=== PATIENT | female | born 2000 | race Caucasian/White ===

== ENCOUNTER 2023-01-30 10:56 | Outpatient (CLI) | payer SELFPAY ==
[2023-02-03 16:29] LABS: HPV Reflexed? NOT INDICATED
== END 2023-01-30 23:59 | disposition home or self-care (01) ==
LOC: LABSPEC 10:59
PROVIDERS: Visit Provider Nurse Practitioner Women's Health
DX: Z12.4 Encounter for screening for malignant neoplasm of cervix (principal)
CPT/HCPCS: 88175; G0145

== ENCOUNTER 2024-04-13 05:55 | Inpatient (IN) | payer MEDICAID, SELFPAY ==
--- NOTE | 2024-04-12 | PLAC_PTH ---
PATIENT: MARIE BENITEZ LOC: [facility] U#:[id number] AGE/SX: 24/F ROOM: WP013 RE04/13/[address]: Michaelle Jj CNM : 2000 BED: 1 DIS: 04/14/2024 SPEC #: [id number] RECD: 04/13/24 13:24 STATUS: EDITH CURT #: [id number] LAINA: 04/12/24 00:[address]: Michaelle Jj DEPT: SURGICAL PATHOLOGY RECD BY: Monika Wynne ENTERED: 04/15/24 08:23 SP TYPE: PLACENTA OTHR DR: No Primary Care Phys Tissues: Placenta, NOS Procedures: Surgery Specimen Level V HEADER OPERATION: Vaginal delivery PRE-OP DIAGNOSIS: Extra lobe on placenta TISSUE SUBMITTED: Placenta MICROSCOPIC DIAGNOSIS Shepard placenta (489 gm): Umbilical cord - Trivascular with no evidence of inflammation. Placental membranes - No pathologic change. Placental disc - John-Trung change and minimal decidual chronic inflammation. AM: 04/16/2024 MICROSCOPIC DESCRIPTION Slides are reviewed. GROSS DESCRIPTION SPECIMEN: PLACENTA / CLINICAL INFORMATION: A. Weight: 3.41 kg B. Gestational Age: 40 weeks C. Sex: Female PLACENTAL WEIGHT (POST FIXATION): 489 gm PLACENTAL DIMENSIONS: 18.0 x 17.0 x 4.0 cm PLACENTAL SHAPE: Usual ovoid with a succenturiate lobe measuring 11.0 x 9.0 x 2.0cm PLACENTAL WEIGHT FOR GESTATIONAL AGE: Within 10-99th percentile (over/under percentile) MEMBRANES - Present A. Insertion: Marginal B. Site of rupture from edge: 6.0 cm from edge of placental disc C. Color of membrane: Cadena-mucoidy D. Abnormalities: None UMBILICAL CORD - Present A. Color: Cadena-neff B. Insertion: Central C. Length: 27.0cm D. Diameter: 1.2cm E. Number of vessels: Three F. Abnormalities: None PLACENTAL DISC - Present A. Color of surface: Cadena-neff B. surface abnormalities: None C. Maternal cotyledons: Intact with minimal tears D. Attached retro placental clot: No clot E. Cut surface: Dark red and spongy F. Lesions: None G. Separate clot: Absent SECTIONS SUBMITTED: (6 cassettes) 1. Membrane roll 2. Cord, maternal end 3. Cord, end 4. Placental disc, and maternal surfaces 5. Placental disc, and maternal surfaces 6. Placental disc, and maternal surfaces, succenturiate lobe SJ.mr 04/15/2024TC:3 CPT: 36549
[2024-04-13] VITALS (65 sets, daily range): BP systolic 117–162; BP diastolic 61–89; PULSE 71–114; RESP 14–18; TEMP 36.3–37.3; O2SAT 86–100; BMI 30.6
[2024-04-13 03:41] LABS: ROM Internal Control Test YES-OK TO RESULT pt. (Internal QC); ROM Patient Test Negative (Negative)
[2024-04-13 04:20] LABS: Absolute Lymphocyte Count 1.62 X10^3/uL (0.83-4.51); Absolute Neutrophil Count 11.5 X10^3/uL (2.0-7.7); Basophil# 0.05 X10^3/uL; Basophil% 0.4 % (0-1); Eosinophil# 0.03 X10^3/uL; Eosinophils% 0.2 % (0-5); Hematocrit 33.2 % (37-47); Hemoglobin 10.9 g/dL (12.0-15.0); Lymphocyte # 1.62 X10^3/ul (0.83-4.51); Lymphocyte % 11.6 % (19-41); Mean Corp Hgb Conc 32.8 g/dL (32-36); Mean Corpuscular Hgb 28.9 pg (27.0-32.0); Mean Corpuscular Volume 88.1 fL (81-99); Mean Platelet Vol. 12.1 fl (6.2-12.0); Monocyte# 0.62 X10^3/uL; Monocyte% 4.5 % (0-10); NRBC Flagged by Analyzer 0 % (0-5); Neutrophil # 11.53 X10^3/uL (2.7-7.7); Neutrophil % 82.7 % (47-70); Platelet Count 224 K/mm3 (150-450); RBC Distribution Width SD 41.3 fl (35.1-43.9); Red Blood Count 3.77 M/mm3 (4.2-5.4); White Blood Count 13.9 K/mm3 (4.4-11.0)
[2024-04-13] MEDS: morphine 10 MG/ML Syringe IV (04:22)
[2024-04-13] MEDS: Ondansetron 4 MG/2 ML Vial IV (04:23)
[2024-04-13] MEDS: hydrOXYzine 50 MG/ML Vial 25 MG IM (04:24)
[2024-04-13 04:54] LABS: Syphilis Antibodies Non-reactive
[2024-04-13] MEDS: Lactated Ringers 1,000 ML 999 ML IV (06:10)
[2024-04-13] MEDS: fentaNYL-bupivacaine (epidural) 100 ML BAG EPIDURAL (08:00)
[2024-04-13] MEDS: Oxytocin 10 UNITS/ML Vial IM (09:53)
[2024-04-13] MEDS: Oxytocin 15 Units/NS 250ml 15 UNITS/250 ML IV.SOLN 83 UNITS IV (09:54)
--- NOTE | 2024-04-13 10:11 | EX.PCM.OBRPT ---
Assessment & Plan (1) Vaginal delivery: (2) Perineal laceration of labia: (3) Lactating mother: Maternal Data Information CINDY Calculator Estimated Delivery Date Method Current WG Current Estimate 04/10/24 Manual 40w 3d Vaginal Delivery Maternal Presentation Maternal Presentation: Active Labor and Spontaneous Rupture of Membranes Operative Information Date of Procedure: 04/13/24 Pre-Operative Diagnosis: Active Labor at term, SROM Post-Operative Diagnosis: , labial laceration Surgery / Procedure Performed: Spontaneous Vaginal Delivery Type of Anesthesia: Epidural Estimated Blood Loss: 200ml Time of Delivery: 09:51 Findings Description of Procedure: Progressed to complete with urge to push. Epidural for pain management. of viable female over right labial laceration . APGARS 8,9 respectively. head delivered with body immediately forthcoming. Placed on maternal abdomen, strong cry. Mouth and nares suctioned for secretions. Pitocin started for active 3rd stage management. Cord doubly clamped and cut by FOB after pulsations ceased, delayed cord clamping. Placenta delivered intact via carreno, 3 vessel cord intact. Bilobed placenta, sent to pathology. Perineum inspected and revealed 1st degree right labial laceration. Repaired with 3.0 vicryl rapide and epidural Fundus firm and hemostasis achieved. EBL 200ml. Mom and baby stable, planning to breastfeed. Family bonding well. notified of delivery. Presentation: Vertex and CHANTEL Amniotic Membrane Rupture Type: Spontaneous Amniotic Fluid Description: Clear Placental Delivery Description: Spontaneous Placenta Disposition: Sent to Pathology Cord Vessel Description: 3 Vessels Cord Entanglement: None Infant A Gender: Female (1 minute): 8 (5 minute): 9 Delayed Cord Clamping: Yes Post Vaginal Delivery Medications Given After Delivery: IV Pitocin and IM Pitocin Episiotomy Description: None Laceration: 1st degree (labial laceration) Complication Complications: None
--- NOTE | 2024-04-13 10:12 | HP.PCM.OB_ITS ---
HPI - General General Date of Admission: 04/13/24 HPI Narrative MARIE BENITEZ, is a 24 F who presents at 40w3d in active labor. Presented at 1cm dilation with regular painful contractions. IV morphine and IM vistaril given for therapeutic rest. Made change to 2cm and SROM clear fluid. Admission for labor. course uncomplicated. Maternal Data Information CINDY Calculator Estimated Delivery Date Method Current WG Current Estimate 04/10/24 Manual 40w 3d PFSH PFSH Medical History (Updated 04/13/24 @ 10:21 by Michaelle Jj CNM) Depression Anxiety Home Medications ?Medication ?Instructions ?Recorded ?Last Taken ?Type ondansetron 4 mg disintegrating 4 mg PO Q8H 04/13/24 04/12/24 History tablet pantoprazole 20 mg tablet,delayed 20 mg PO DAILY 04/13/24 04/12/24 History release (Protonix) vit no.95-ferrous 1 tab PO DAILY 04/13/24 04/12/24 History fumarate 28 mg-folic acid 800 mcg tablet () Allergy/AdvReac Type Severity Reaction Status Date / Time Influenza Virus Vaccines AdvReac Mild Vomiting Verified 04/13/24 01:41 Surgical History (Updated 04/13/24 @ 02:14 by Jennifer Mayen) History of placement of ear tubes Social History Smoking Status: Never smoker History Elective abortions Hx Para 0 Spontaneous abortions Hx # Term Pregnancies Ectopic pregnancies Hx # Pregnancies Multiple births # of living children NST FHR Rate Baby A Baseline: 150 Variability:: Moderate Accelerations:: 15 x 15 Decelerations:: Early FHR Category:: Category I Uterine Activity:: Every 2-3 minutes, strong ROS Constitutional Constitutional: Reports systems reviewed and no addt'l complaints, except as documented; Denies headache(s) Eyes Eyes: Denies acute decrease in peripheral vision, blurry vision or change in vision ENT HEENT: Reports systems reviewed and no addt'l complaints, except as documented Cardiovascular Cardiovascular: Denies chest pain or dizziness Respiratory/Chest Respiratory/Chest: Denies cough, dyspnea, dyspnea on exertion, shortness of juana ath at rest or shortness of breath with exertion Gastrointestinal Gastrointestinal: Denies abdominal pain, diarrhea, nausea or vomiting Musculoskeletal Musculoskeletal: Denies limited range of motion Integumentary Integumentary: Reports systems reviewed and no addt'l complaints, except as documented Neurologic Neurologic: Reports systems reviewed and no addt'l complaints, except as documented Psychiatric Psychiatric: Reports systems reviewed and no addt'l complaints, except as documented Endocrine Endocrinology: Reports systems reviewed and no addt'l complaints, except as documented Hematologic/Lymphatic Hematologic/Lymphatic: Reports systems reviewed and no addt'l complaints, except as documented Allergic/Immunologic Allergic/Immunologic: Reports systems reviewed and no addt'l complaints, except as documented Vital Signs Vital Signs Vital Signs: 04/13/24 01:45 04/13/24 01:45 04/13/24 01:45 Temperature 97.3 F L Temperature Source Temporal Pulse Rate Respiratory Rate 14 Blood Pressure BP Systolic BP Diastolic Pulse Ox 04/13/24 01:46 04/13/24 01:46 04/13/24 01:50 Temperature Temperature Source Pulse Rate 82 Respiratory Rate Blood Pressure 139/76 H BP Systolic 139 BP Diastolic 76 Pulse Ox 99 04/13/24 01:50 04/13/24 03:40 04/13/24 03:40 Temperature Temperature Source Pulse Rate 71 80 Respiratory Rate Blood Pressure 135/72 H BP Systolic 135 BP Diastolic 72 Pulse Ox 04/13/24 06:38 04/13/24 06:38 04/13/24 06:38 Temperature Temperature Source Pulse Rate 77 Respiratory Rate Blood Pressure 130/75 H BP Systolic 130 BP Diastolic 75 Pulse Ox 100 04/13/24 07:23 04/13/24 07:23 04/13/24 07:23 Temperature Temperature Source Pulse Rate 76 Respiratory Rate Blood Pressure 132/78 H BP Systolic 132 BP Diastolic 78 Pulse Ox 97 04/13/24 07:23 04/13/24 07:23 04/13/24 07:23 Temperature 97.3 F L Temperature Source Temporal Pulse Rate Respiratory Rate 16 Blood Pressure BP Systolic BP Diastolic Pulse Ox 04/13/24 07:43 04/13/24 07:43 04/13/24 07:44 Temperature Temperature Source Pulse Rate 107 H Respiratory Rate Blood Pressure 162/73 H BP Systolic 162 BP Diastolic 73 Pulse Ox 91 04/13/24 07:44 04/13/24 07:49 04/13/24 07:49 Temperature Temperature Source Pulse Rate 110 H 84 Respiratory Rate Blood Pressure 137/77 H BP Systolic 137 BP Diastolic 77 Pulse Ox 04/13/24 07:51 04/13/24 07:51 04/13/24 07:52 Temperature Temperature Source Pulse Rate 94 Respiratory Rate Blood Pressure 137/74 H BP Systolic 137 BP Diastolic 74 Pulse Ox 99 04/13/24 07:52 04/13/24 07:57 04/13/24 07:57 Temperature Temperature Source Pulse Rate 97 108 H Respiratory Rate Blood Pressure BP Systolic BP Diastolic Pulse Ox 99 04/13/24 07:58 04/13/24 07:58 04/13/24 07:59 Temperature Temperature Source Pulse Rate 101 H Respiratory Rate Blood Pressure 138/77 H 139/64 H BP Systolic 138 139 BP Diastolic 77 64 Pulse Ox 04/13/24 07:59 04/13/24 08:02 04/13/24 08:02 Temperature Temperature Source Pulse Rate 98 98 Respiratory Rate Blood Pressure BP Systolic BP Diastolic Pulse Ox 99 04/13/24 08:04 04/13/24 08:04 04/13/24 08:04 Temperature Temperature Source Pulse Rate 89 Respiratory Rate 16 Blood Pressure 117/65 BP Systolic 117 BP Diastolic 65 Pulse Ox 04/13/24 08:07 04/13/24 08:07 04/13/24 08:07 Temperature Temperature Source Pulse Rate 102 H Respiratory Rate Blood Pressure 119/66 BP Systolic 119 BP Diastolic 66 Pulse Ox 100 04/13/24 08:07 04/13/24 08:07 04/13/24 08:12 Temperature Temperature Source Pulse Rate 90 Respiratory Rate 18 Blood Pressure 127/69 H BP Systolic 127 BP Diastolic 69 Pulse Ox 04/13/24 08:12 04/13/24 08:12 04/13/24 08:12 Temperature Temperature Source Pulse Rate 96 Respiratory Rate 16 Blood Pressure BP Systolic BP Diastolic Pulse Ox 100 04/13/24 08:17 04/13/24 08:17 04/13/24 08:17 Temperature Temperature Source Pulse Rate 91 Respiratory Rate Blood Pressure 126/68 H BP Systolic 126 BP Diastolic 68 Pulse Ox 100 04/13/24 08:17 04/13/24 08:22 04/13/24 08:22 Temperature Temperature Source Pulse Rate 85 Respiratory Rate 16 Blood Pressure 125/69 H BP Systolic 125 BP Diastolic 69 Pulse Ox 04/13/24 08:22 04/13/24 08:22 04/13/24 08:27 Temperature Temperature Source Pulse Rate 93 Respiratory Rate 16 Blood Pressure BP Systolic BP Diastolic Pulse Ox 100 04/13/24 08:27 04/13/24 08:27 04/13/24 08:27 Temperature Temperature Source Pulse Rate 92 Respiratory Rate Blood Pressure 118/64 BP Systolic 118 BP Diastolic 64 Pulse Ox 100 Weight Weight: 210 lb 5.136 oz Body Mass Index (BMI) 30.6 Physical Exam Const alert and oriented x3 General Appearance: cooperative Orientation / Consciousness: awake, oriented to person, oriented to place and oriented to time Exam Limitations: no limitations HEENT normocephalic Head and Scalp: normal to inspection, normocephalic and atraumatic Face and Sinus: normal facial exam Eyes General Eye: normal appearance of both eyes Neck full ROM Chest Chest: symmetrical chest wall rise GI non-tender appearance of the vagina normal Bladder / Kidney Exam: no CVA tenderness Back/Spine normal ROM Extremity normal to inspection and full ROM Skin no rashes or lesions noted Neuro oriented x3 and moves all extremities Sensorium / Orientation: awake, alert and oriented to person Motor Exam: clonus absent Labs Labs Labs: Blood Type A POSITIVE Antibody Screen NEGATIVE Hct 33.2 % (37-47) L Hgb 10.9 g/dL (12.0-15.0) L Syphilis Total Ab Non-reactive GBS negative HIV negative HBsAG negative RPR negative HepC negative GC/CT negative A positive Assessment & Plan (1) 40 weeks gestation of : (2) Active labor at term: (3) SROM (spontaneous rupture of membranes): PLAN: Plan 1) Admit to labor and delivery 2) Routine labs 3) Continuous EFM 4) Pain management upon request 5) [facility] physician and notified of patient status, above assessment, and plan.
[2024-04-13] MEDS: Acetaminophen 500 MG Tablet 1000 MG PO (19:16)
[2024-04-13] MEDS: Benzocaine/Lanolin/Aloe Vera 85 GM Spray 1 SPRAY TOPICAL (22:48)
[2024-04-13] MEDS: Ibuprofen 600 MG Tablet PO (22:48)
[2024-04-14] VITALS (8 sets, daily range): BP systolic 122–129; BP diastolic 60–74; PULSE 67–90; RESP 14–16; TEMP 36.4–36.7; O2SAT 97–98
[2024-04-14 07:01] LABS: Absolute Lymphocyte Count 2.38 X10^3/uL (0.83-4.51); Absolute Neutrophil Count 9.3 X10^3/uL (2.0-7.7); Basophil# 0.05 X10^3/uL; Basophil% 0.4 % (0-1); Eosinophil# 0.05 X10^3/uL; Eosinophils% 0.4 % (0-5); Hematocrit 31.9 % (37-47); Hemoglobin 10.5 g/dL (12.0-15.0); Lymphocyte # 2.38 X10^3/ul (0.83-4.51); Lymphocyte % 18.8 % (19-41); Mean Corp Hgb Conc 32.9 g/dL (32-36); Mean Corpuscular Hgb 29.2 pg (27.0-32.0); Mean Corpuscular Volume 88.9 fL (81-99); Mean Platelet Vol. 11.5 fl (6.2-12.0); Monocyte# 0.78 X10^3/uL; Monocyte% 6.2 % (0-10); NRBC Flagged by Analyzer 0 % (0-5); Neutrophil # 9.32 X10^3/uL (2.7-7.7); Neutrophil % 73.6 % (47-70); Platelet Count 193 K/mm3 (150-450); RBC Distribution Width CV 13.3 % (11.6-14.6); RBC Distribution Width SD 43.1 fl (35.1-43.9); Red Blood Count 3.59 M/mm3 (4.2-5.4); White Blood Count 12.7 K/mm3 (4.4-11.0)
--- NOTE | 2024-04-14 09:16 | PCM.PN.OB ---
Subjective Subjective Doing well per patient and nursing staff. Ambulating and taking PO without difficulty. Voiding and passing flatus. Pain controlled. , services for assistance. Denies headache, visual changes, chest pain, shortness of breath, leg pain or increased bleeding. Lochia normal. Objective Data Objective Data Vital Signs: Vital Signs Temp Pulse Resp BP Pulse Ox O2 Del Method 97.8 F 88 16 125/74 H 98 Room Air 04/14/24 08:23 04/14/24 08:25 04/14/24 08:23 04/14/24 08:25 04/14/24 08:25 04/14/24 08:23 Oxygen Delivery Method Room Air Weight: 210 lb 5.136 oz Body Mass Index (BMI) 30.6 Intake & Output: Intake and Output for Last 24 Hours 04/12/24 04/13/24 04/14/24 23:59 23:59 23:59 Intake Total 1250 / 1250 Output Total 700 / 700 Balance 550 / 550 Lab / Micro Data 04/14/24 06:52 Labs: Laboratory Results - last 24 hr 04/14/24 06:52: WBC 12.7 H, RBC 3.59 L, Hgb 10.5 L, Hct 31.9 L, MCV 88.9, MCH 29.2, MCHC 32.9, RDW Std Deviation 43.1, RDW Coeff of Adrian 13.3, Plt Count 193, MPV 11.5, Immature Gran % (Auto) 0.600, Neut % (Auto) 73.6 H, Lymph % (Auto) 18.8 L, [place] % (Auto) 6.2, Eos % (Auto) 0.4, Baso % (Auto) 0.4, Absolute Neuts (auto) 9.3 H, Absolute Lymphs (auto) 2.38, Nucleated RBC % 0 ROS Constitutional Constitutional: Reports systems reviewed and no addt'l complaints, except as documented; Denies headache(s) Eyes Eyes: Denies acute decrease in peripheral vision, blurry vision or change in vision ENT HEENT: Reports systems reviewed and no addt'l complaints, except as documented Cardiovascular Cardiovascular: Denies chest pain or dizziness Respiratory/Chest Respiratory/Chest: Denies cough, dyspnea, dyspnea on exertion, shortness of breath at rest or shortness of breath with exertion Gastrointestinal Gastrointestinal: Denies abdominal pain, diarrhea, nausea or vomiting Genitourinary Genitourinary: Denies abdominal discomfort or movement Musculoskeletal Musculoskeletal: Denies limited range of motion Integumentary Integumentary: Reports systems reviewed and no addt'l complaints, except as documented Neurologic Neurologic: Reports systems reviewed and no addt'l complaints, except as documented Psychiatric Psychiatric: Reports systems reviewed and no addt'l complaints, except as documented Endocrine Endocrinology: Reports systems reviewed and no addt'l complaints, except as documented Hematologic/Lymphatic Hematologic/Lymphatic: Reports systems reviewed and no addt'l complaints, except as documented Allergic/Immunologic Allergic/Immunologic: Reports systems reviewed and no addt'l complaints, except as documented Physical Exam Const alert and oriented x3 General Appearance: cooperative Orientation / Consciousness: awake, oriented to person, oriented to place and oriented to time Exam Limitations: no limitations HEENT normocephalic Head and Scalp: normal to inspection, normocephalic and atraumatic Face and Sinus: normal facial exam Eyes General Eye: normal appearance of both eyes Neck full ROM Chest Chest: symmetrical chest wall rise Resp normal respiratory effort and normal air movement Auscultation: clear to auscultation bilaterally Cardio regular rate, regular rhythm, S1 normal heart sound, S2 normal heart sound, no murmurs, no rub, no gallops and no clicks GI normal to inspection, nondistended, normoactive bowel sounds and non-tender appearance of the vagina normal Bladder / Kidney Exam: no CVA tenderness Back/Spine normal ROM Extremity normal to inspection and full ROM Skin no rashes or lesions noted Neuro oriented x3, CN's II-XII intact bilaterally and moves all extremities Sensorium / Orientation: awake, alert and oriented to person Motor Exam: clonus absent Deep Tendon Reflexes: Rt Patellar (L4): 2+ and Lt Patellar (L4): 2+ Assessment & Plan (1) Lactating mother: (2) Perineal laceration of labia: (3) Vaginal delivery: PLAN: Plan 1) Routine care, PPD # 2) Vitals signs stable 3) Pain controlled 4) , services PRN 5) D/C home 6) Follow up in 2 weeks and 6 weeks
--- NOTE | 2024-04-14 09:49 | PCM.DC.SUM ---
Providers Date of Admission: 04/13/24 Primary Care Physician: Mercedes Primary Care Phys Reason For Visit: VAG DELIVERY Diagnosis Discharge Diagnosis (1) Lactating mother: Status: Acute Code(s): Z39.1 - Encounter for care and examination of lactating mother (2) Perineal laceration of labia: Status: Acute Code(s): S31.41XA - Laceration without foreign body of vagina and vulva, initial encounter (3) Vaginal delivery: Status: Acute Code(s): O80 - Encounter for full-term uncomplicated delivery Plan 1) Routine care, PPD # 2) Vitals signs stable 3) Pain controlled 4) , services PRN 5) D/C home 6) Follow up in 2 weeks and 6 weeks Medications at Discharge Home Medications vit no.95-ferrous fumarate 28 mg-folic acid 800 mcg tablet () 1 tab PO DAILY 04/13/24 acetaminophen 500 mg tablet 1,000 mg (2 x 500 mg) PO Q6H PRN PRN Pain 1-10 Or Fever #0 tabs 04/14/24 ibuprofen 600 mg tablet 600 mg PO Q6H PRN PRN Pain Score 1-10 #0 tabs 04/14/24 Weight / BMI Weight Weight: 210 lb 5.136 oz Body Mass Index (BMI) 30.6 ABG / Lab / Microbiology Data 04/14/24 06:52 Laboratory: Laboratory Results - last 24 hr 04/14/24 06:52: WBC 12.7 H, RBC 3.59 L, Hgb 10.5 L, Hct 31.9 L, MCV 88.9, MCH 29.2, MCHC 32.9, RDW Std Deviation 43.1, RDW Coeff of Adrian 13.3, Plt Count 193, MPV 11.5, Immature Gran % (Auto) 0.600, Neut % (Auto) 73.6 H, Lymph % (Auto) 18.8 L, [place] % (Auto) 6.2, Eos % (Auto) 0.4, Baso % (Auto) 0.4, Absolute Neuts (auto) 9.3 H, Absolute Lymphs (auto) 2.38, Nucleated RBC % 0 Meaningful Use Info Meaningful Use Meaningful Use Diagnoses (Choose all that apply): None applicable Ischemic Stroke Statin Dosing Therapy Reference: STATIN DOSE THERAPY REFERENCE: * Patients > 75 years receive moderate or high dose statin therapy. * Patients 75 years or YOUNGER should receive HIGH intensity statin dose unless contraindicated. You will be required to document reason for non-treatment if statin daily dose does not meet guidelines. HIGH DOSE STATIN THERAPY DAILY Atorvastatin > than or = to 40 mg Rosuvastatin > than or = to 20 mg Amlodipine + Atorvastatin > than or = to 2.5/40 mg Ezetimibe + Simvastatin 10/80 mg Simvastatin 80mg Discharge Plan Admission Admit Date/Time: 04/13/24 05:55 Primary Reason for Your Visit: Vaginal Delivery Attending Provider: Michaelle Jj Primary Care Provider: Care Physician,Mercedes Primary Discharge Orders/Prescriptions Prescriptions: New acetaminophen 500 mg Tablet 1,000 mg PO Q6H PRN PRN (Reason: Pain 1-10 Or Fever) Qty: 0 0RF ibuprofen 600 mg Tablet 600 mg PO Q6H PRN PRN (Reason: Pain Score 1-10) Qty: 0 0RF Continued PNV cmb#95-ferrous fumarate-FA [] 28 mg iron- 800 mcg tablet 1 tab PO DAILY Discontinued ondansetron 4 mg tablet,disintegrating 4 mg PO Q8H pantoprazole [Protonix] 20 mg tablet,delayed release (DR/EC) 20 mg PO DAILY Referrals / Follow Up: Care Physician,No Primary [Primary Care Provider] - Disposition Disposition (needs filled in before D/C Order can be placed): Home, Self Care
[2024-04-14] MEDS: Acetaminophen 500 MG Tablet 1000 MG PO (11:53)
--- NOTE | 2024-04-14 13:35 | CASEMGMT ---
Social Work Assessment Labor and Delivery Unit Patient Address: [address] [place] [address], [id number] Phone number: Date of Referral: 04/13/2024 Time of Referral: 14:23 Referred By: Michaelle Jj Date of Intervention: ?04/14/2024 Time of Intervention: 13:35 Reason for Referral: History of Anxiety and Depression History obtained from: Medical records, mother of baby (MOB) and father of baby (FOB).? Household composition: MOB Ana, FOB Laurel Galvez and girl Giles Moore, born on 04/[birth year]24. Patient's parent/guardian status: MOB and FOB are not but have been together for a little over one year. ?Both MOB and FOB are actively involved and will be providing care for baby. MOB denied any concerns with domestic violence and described a positive and supportive relationship with the FOB. Medical History: ? 1, Para 1. MOB received routine care through [facility] beginning at 10 weeks and 1 day. Apgars: 8 and 9. Weight: 7 pounds, 14 ounces.? Finishing Inspector: Dr. Margy Rock with [facility]. Educational Status: MOB and FOB denied any issues or concerns with reading or writing. MOB and FOB both earned their High School Diploma?s. Financial Status: MOB and FOB reported their income is sufficient to meet the needs of their family at this time. 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 MOB reported she?s allowed to take off as much time as she needs and is hoping to take the rest of this year off and return back to work in July,. FOB reported he hasn?t earned any vacation time off at his current job however gets every and Monday off. Supplies: MOB and FOB reported they have all the supplies they need for baby at this time including but not limited to: Car Seat, bassinet, pack-n-play, crib, diapers, bottles, breast pumps and clothing. MOB and FOB reported they?ve been attending parenting classes every week through the Center and have been able to earn points to get all of the supplies they need and also still have points left over and are able to get diapers through the Center as well. Childcare/Caregiver(s):? MOB identified herself and the FOB as the primary caregivers as they work opposite shifts.? MOB also reported that ?s maternal grandfather (MGF) and ?s maternal aunt and uncle all live close by and can help as much as needed. Transportation:? MOB and FOB reported they are both licensed drivers and have a reliable vehicle to take baby to and from all medical appointments. No transportation issues identified. Programs/Agencies Involved: CJ is currently receiving Medicaid and [employer] through [employer]. CJ is in the process of applying for mabry assistance and is scheduling an appointment with [facility] on 04/15/2024. Children Services/Legal Issues:? Denied. Behavioral Health Issues: ??Mental Health History: ?CJ has a history of depression and anxiety.? MOB reported she?s mostly struggled with anxiety and no so much depression.? MOB reported her anxiety and depression are both managed at this time. FOB denied any mental health issues/concerns.?Substance Use History:? Denied. ?Family History: MOB?s cousins have ADHD, depression and anxiety with one cousin being Autistic. Drug Screens: ?None obtained at the time of this admission. ? Family/Social Stressors: ?MOB and FOB denied any current family or social stressors. Support Systems: Ample.? MOB and FOB identified their biggest supports as each other as well as ?s MGF, aunt and uncle. ?s maternal grandmother is currently visiting from [place] and is staying with MOB, FOB and for a week to provide help. Depression/Shaken Baby/Safe Sleeping: front desk worker provided verbal and written education on PPD, Safe Sleeping and Shaken Baby.? Parents verbalized an understanding. ??? ASSESSMENT:? MOB and FOB provided consent to social work visit. Upon arrival, MOB was finishing up in the restroom and the FOB was assisting the MOB.? [place] was in a near-by crib. Afterwards, MOB sat in the hospital bed and the FOB was on a bed-side chair holding . MOB and FOB appeared to be attached and bonded to one another and also to . front desk worker observed positive interaction between the MOB and FOB, and both MOB and FOB appeared to be very attentive to the needs of the and were being gentle and loving towards . At the end of the visit, child welfare social worker requested to speak with and meet with the MOB alone which both were agreeable to. MOB denied any previous or current domestic violence, unmanaged mental health issues or drug or alcohol abuse concerns. MOB reported feeling safe. During MOB?s , she had inquired about counseling however admitted she never followed through past the first call however MOB stated she will reach out for help in the future if ever needed. Safe Plan of Care for related to substance use: N/A; not needed. ? PLAN:? Baby to be discharged home when ready.? front desk worker also provided written information on depression, depression resources and Help Me Grow as additional resources offered by child welfare social worker which MOB and FOB accepted. No other services requested or indicated. Miroslava Kapadia, PRINTING PLATE [employer], [employer]
[2024-04-17 00:12] LABS: Pathology Specimen OB SEE PATHOLOGY REPORT
== END 2024-04-14 16:05 | disposition home or self-care (01) | DRG 560 ==
LOC: WPOUT 05:58 → WP 05:58
PROVIDERS: Admitting Provider Advanced Practice Midwife; Referring Provider Advanced Practice Midwife; Visit Provider Advanced Practice Midwife
DX: O48.0 Post-term pregnancy (principal); Z37.0 Single live birth; O70.0 First degree perineal laceration during delivery; Z3A.40 40 weeks gestation of pregnancy
CPT/HCPCS: 59025; 59050; 84112; 85025; 86780; 86850; 86900; 86901; 88307; 99221; J7120; G0378; J2405